=== PATIENT | male | born 1985 | race Two or more races ===

== ENCOUNTER 2021-02-27 10:19 | Emergency (ER) | payer MEDICAID, OTHER ==
[~2021-02-27] VITALS: Ht 165.1 cm; Wt 63.5 kg
[2021-02-27 10:51] VITALS: BP 131/80
== END 2021-02-27 11:31 | disposition home or self-care (01) ==
LOC: ER 10:19
DX: S60.466A Insect bite (nonvenomous) of right little finger, initial encounter (principal); W57.XXXA Bitten or stung by nonvenomous insect and other nonvenomous arthropods, initial encounter; Y93.89 Activity, other specified; Y92.89 Other specified places as the place of occurrence of the external cause; Y99.8 Other external cause status